=== PATIENT | male | born 1985 | race Caucasian/White ===

== ENCOUNTER 2020-08-12 11:45 | Emergency (ER) | payer SELFPAY ==
[~2020-08-12] VITALS: Ht 188 cm; Wt 77.0 kg
[2020-08-12] MEDS ORDERED: OXcarbazepine 300 MG TABLET PO STA (11:55)
--- NOTE | 2020-08-12 12:03 | PHYS DOC ---
General Adult HPI: HPI: Patient is a 34 year old male patient with history of seizures who presents to the ED today to be evaluated after having a witnessed seizure. Patient is homeless and was noted to be on the streets seizing by bystanders. It is unknown how long he seized for. Patient states he is supposed to be on Trileptal but he has not taken the medicine for almost 2 months because he is homeless and does not have an address to get his Medicaid. Patient denies any symptoms right now. Review of Systems: Review of Systems: Constitutional: Denies fever or chills. [] Eyes: Denies change in visual acuity. [] HENT: Denies nasal congestion or sore throat. [] Respiratory: Denies cough or shortness of breath. [] Cardiovascular: Denies chest pain or edema. [] GI: Denies abdominal pain, nausea, vomiting, bloody stools or diarrhea. [] : Denies dysuria. [] Musculoskeletal: Denies back pain or joint pain. [] Integument: Denies rash. [] Neurologic: Reports seizure. Denies headache, focal weakness or sensory changes. [] Psychiatric: Denies depression or anxiety. [] Heart Score: Risk Factors: Risk Factors: DM, Current or recent (<one month) smoker, HTN, HLP, family history of CAD, obesity. Risk Scores: Score 0 - 3: 2.5% MACE over next 6 weeks - Discharge Home Score 4 - 6: 20.3% MACE over next 6 weeks - Admit for Clinical Observation Score 7 - 10: 72.7% MACE over next 6 weeks - Early Invasive Strategies Current Medications: Current Medications Medications (Trade) Dose Ordered Sig/[facility] Start Time Stop Time Status Last Admin Dose Admin Oxcarbazepine (Trileptal) 300 mg 1X STAT 08/12/20 11:55 08/12/20 11:56 UNV Physical Exam: PE: Constitutional: Well developed, well nourished, no acute distress, non-toxic appearance. [] HENT: Normocephalic, atraumatic, bilateral external ears normal, oropharynx moist, no oral exudates, nose normal. [] Eyes: PERRLA, EOMI, conjunctiva normal, no discharge. [] Neck: Normal range of motion, no tenderness, supple, no stridor. [] Cardiovascular:Heart rate regular rhythm, no murmur [] Lungs & Thorax: Bilateral breath sounds clear to auscultation [] Abdomen: Bowel sounds normal, soft, no tenderness, no masses, no pulsatile masses. [] Skin: Warm, dry, no erythema, no rash. [] Back: No tenderness, no CVA tenderness. [] Extremities: No tenderness, no cyanosis, no clubbing, ROM intact, no edema. [] Neurologic: Alert and oriented X 3, normal motor function, normal sensory function, no focal deficits noted. [] Psychologic: Flat affect EKG: EKG: [] Radiology/Procedures: Radiology/Procedures: [] Course & Med Decision Making: Course & Med Decision Making Pertinent Labs and Imaging studies reviewed. (See chart for details) This is a 34-year-old male patient presenting to the ED today to be evaluated after having a seizure. Patient is homeless. He is supposed to be on Trileptal and states he has not taken it for roughly 2 months. CBC, CMP with no acute findings. Lactic 3.2. Patient was given Trileptal in the ED given prescription for home use scheduled follow-up with a neurologist. Joce Vick Disclaimer: Nicanor Disclaimer: This electronic medical record was generated, in whole or in part, using a voice recognition dictation system. Departure Departure Impression: Primary Impression: Seizure Additional Impression: Homeless Disposition: 01 DC HOME SELF CARE/HOMELESS Condition: STABLE Referrals: ROBER LYNCH MD follow up in one week Patient Instructions: Seizure, Adult Additional Instructions: You were seen after having a seizure. Follow-up with a neurologist provided as soon as possible. Take your medicine as prescribed. Scripts Oxcarbazepine (TRILEPTAL) 150 Mg Tablet 1 TAB PO BID, #90 TAB 2 Refills Prov: SANTINO VELEZ CHRIS 08/12/20 SANTINO VELEZ CHRIS Aug 12, 2020 12:03
[2020-08-12 13:30] LABS: BASO % 1 % (0-3); EOS % 1 % (0-3); HEMATOCRIT 41.9 % (39.0-53.0); HEMOGLOBIN 14.5 g/dL (13.0-17.5); LYMPH # 0.7 x10^3/uL (1.0-4.8); LYMPH % 13 % (24-48); MEAN CORPUSCULAR HEMOGLOBIN 30 pg (25-35); MEAN CORPUSCULAR HGB CONC 35 g/dL (31-37); MEAN CORPUSCULAR VOLUME 88 fL (79-100); MONO # 0.4 x10^3/uL (0.0-1.1); MONO % 9 % (0-9); NEUT # 3.9 x10^3/uL (1.8-7.7); NEUT % 77 % (31-73); PLATELET COUNT 236 x10^3/uL (140-400); RED BLOOD COUNT 4.78 x10^6/uL (4.30-5.70); RED CELL DISTRIBUTION WIDTH 13.2 % (11.5-14.5); WHITE BLOOD COUNT 5.1 x10^3/uL (4.0-11.0)
[2020-08-12 13:40] LABS: PROTHROMBIN TIME PATIENT 13.7 SEC (11.7-14.0)
[2020-08-12 13:47] LABS: CALCIUM 8.5 mg/dL (8.5-10.1); CREATININE 0.8 mg/dL (0.7-1.3); GFR 109.4; POTASSIUM 3.8 mmol/L (3.5-5.1)
[2020-08-12 13:53] LABS: ALBUMIN 3.7 g/dL (3.4-5.0); ALBUMIN/GLOBULIN RATIO 1.3 (1.0-1.7); MAGNESIUM 2.1 mg/dL (1.8-2.4); TOTAL BILIRUBIN 0.5 mg/dL (0.2-1.0); TOTAL PROTEIN 6.6 g/dL (6.4-8.2)
[2020-08-12] MEDS ORDERED: OXCA150T3 PO (14:04)
[2020-08-12 14:36] VITALS: BP 118/76
== END 2020-08-12 14:39 | disposition home or self-care (01) ==
LOC: ER 11:45
DX: R56.9 Unspecified convulsions (principal); Z59.0 Homelessness
CPT/HCPCS: 36415; 80053; 83605; 83690; 83735; 84484; 85025; 85610; 93005; 99284; G0480